=== PATIENT | female | born 1965 | race Caucasian/White ===

== ENCOUNTER 2018-10-10 18:41 | Emergency (ER) | payer OTHER ==
[~2018-10-10] VITALS: Ht 152.4 cm; Wt 77.6 kg
[2018-10-10] MEDS ORDERED: ATACAND32 MG (19:03)
== END 2018-10-10 22:47 | disposition home or self-care (01) ==
LOC: ER 18:41
DX: N13.39 Other hydronephrosis (principal); N20.0 Calculus of kidney; R10.31 Right lower quadrant pain